=== PATIENT | male | born 1950 | race Caucasian/White ===

== ENCOUNTER 2019-03-12 07:36 | Emergency (ER) | payer OTHER, SELFPAY ==
[2019-03-12 07:40] VITALS: BP 129/82; PULSE 71; RESP 18; TEMP 36.4; O2SAT 97; BMI 34.4
--- NOTE | 2019-03-12 07:55 | DI.CT.S_ITS ---
PROCEDURE: CT HEAD/BRAIN WO CON INDICATIONS: vision change TECHNIQUE: Noncontrast 4.5 mm thick angled axial sections acquired from the foramen magnum to the vertex, with coronal and sagittal reformats. For radiation dose reduction, the following was used: automated exposure control, adjustment of mA and/or kV according to patient size. COMPARISON: None. FINDINGS: Image quality: Diagnostic. CSF spaces: Basal cisterns are patent. No extra-axial fluid collections. Ventricles are normal in size and shape. Brain: No midline shift. No intracranial masses or hemorrhage. Sood-white matter interface is normal. Skull and face: Calvarium and visualized facial bones are intact, without suspicious lesions. Sinuses: Visualized sinuses and mastoids are clear. IMPRESSION: Unremarkable head CT. No acute intracranial hemorrhage. Dictated by: Abdoul Murillo M.D. on 03/12/2019 at 7:47 Approved by: Abdoul Murillo M.D. on 03/12/2019 at 7:48
--- NOTE | 2019-03-12 08:16 | ED_ITS ---
HPI - Eye Problem General Chief complaint: Eye Problems Stated complaint: vision issues Time Seen by Provider: 03/12/19 07:38 Source: patient Mode of arrival: Ambulatory Limitations: no limitations History of Present Illness HPI Narrative: 68M nonsmoker with benign medical history presents alone with the chief complaint of some visual disturbances in his right eye which began yesterday. He admits to a long history of a floater in this eye but he developed a new one yesterday which is a bit darker. He denies eye pain. The floater moves when he moves his eye, but a bit more slowly, with a delay. He denies blurred vision or visual field cuts. He denies use of blood thinners. He denies any recent head injuries or other complaints such as trouble with speech, numbness, tingling or weakness. He has uncorrected vision and states that because of this he tends to be very sensitive to any changes in his vision. He does have a subtle R sided temporal headache which started after the vision disturbance. MD chief complaint: vision change Onset (ago): hour(s) Onset description: unknown Duration: constant Location: right eye Eye Symptoms: other Severity: mild Associated symptoms: headache Treatments Prior to Arrival: none Related Data Patient tetanus UTD: Yes Allergies Allergy/AdvReac Type Severity Reaction Status Date / Time No Known Drug Allergies Allergy Verified 03/12/19 08:00 Review of Systems Constitutional Constitutional: Denies chills, Denies fatigue, Denies fever(s), Denies frequent falls, Reports headache(s), Denies lethargy and Denies weakness Eyes Eyes: Denies change in vision, Denies eye discharge, Reports floaters, Denies irritation and Denies loss of vision ENT Ears, Nose, Mouth, and Throat: Denies change in voice, Denies dizziness, Reports headache(s), Denies neck pain, Denies sore throat and Denies throat swelling Cardiovascular Cardiovascular: Denies chest pain, Denies irregular heart rhythm, Denies lightheadedness, Denies palpitations, Denies dyspnea, Denies dyspnea on exertion and Denies orthopnea Respiratory Respiratory: Denies cough, Denies dyspnea, Denies dyspnea on exertion and Denies wheezing Gastrointestinal Gastrointestinal: Denies abdominal pain, Denies change in bowel habits, Denies diarrhea, Denies nausea and Denies vomiting Genitourinary Genitourinary: Denies hematuria, Denies flank pain, Denies urinary incontinence and Denies urinary urgency Musculoskeletal Musculoskeletal: Denies back pain, Denies muscle weakness, Denies neck pain, Denies numbness and Denies tingling Integumentary/Breasts Skin/Breast: Denies pruritus, Denies erythema, Denies rash and Denies wounds Neurologic Neurologic: Denies behavioral changes, Denies confusion, Denies dizziness, Denies frequent falls, Reports headache(s), Denies loss of vision, Denies numbness, Denies tingling and Denies weakness Psychiatric Psychiatric: Denies anxiety, Denies behavioral changes, Denies confusion, Denies depression, Denies homicidal ideation and Denies suicidal ideation Endocrine Endocrine: Denies fatigue, Denies flushing and Denies palpitations Hematologic/Lymphatic Hematologic/Lymphatic: Denies easy bruising Allergic/Immunologic Allergic/Immunologic: Denies urticaria, Denies throat swelling and Denies wheezing Patient History Medical History Colon polyps (Resolved 2016) Depression (Chronic Unknown) Surgical History Hx of appendectomy (Resolved ~1962) Family History Father No problems noted. Mother No problems noted. Grandfather No problems noted. Grandfather No problems noted. Social History Smoking Status: Never smoker second hand exposure: No alcohol intake: current (Beer, wine or whiskey daily) substance use type: does not use Exam Narrative Exam Narrative: GENERAL: [68] year old patient appears stated age. Well-nourishe d, well-developed patient, in mild distress. HEAD: Atraumatic. Normocephalic. EYES: Pupils equal round and reactive. Extraocular motions intact. No scleral icterus. No injection or drainage. ENT: Nose without bleeding, purulent drainage. Throat without erythema, tonsillar hypertrophy or exudate. Airway patent. NECK: Trachea midline. Non tender CARDIOVASCULAR: Regular rate and rhythm without murmurs, gallops, or rubs. RESPIRATORY: Clear to auscultation. Breath sounds equal bilaterally. No wheezes, rales, or rhonchi. GASTROINTESTINAL: Abdomen soft, non-tender, nondistended. EXTREMITIES: No edema or joint tenderness. BACK: Nontender without deformity or crepitance. No flank tenderness. NEURO: AOx3. SKIN: No rash or erythema of visible areas NIH Stroke Scale 1a. LOC: Patient is alert and keenly responsive (0) 1b. LOC Questions: Patient answers both LOC questions accurately (0) 1c. LOC Commands: Patient performs both tasks correctly (0) 2. Best Gaze: Normal (0) 3. Visual: No visual loss (0) 4. Facial palsy: Normal symmetrical movements (0) 5. Motor arm: No drift (0) 6. Motor leg: No drift (0) 7. Limb ataxia: Absent (0) 8. Sensory: Normal (0) 9. Best language: No aphasia; normal (0) 10. Dysarthria: Normal (0) 11. Extinction and inattention: No abnormality (0) NIHSS: 0 Initial Vital Signs Initial Vital Signs: Vital Signs Temperature 97.6 F 03/12/19 07:40 Pulse Rate 71 03/12/19 07:40 Respiratory Rate 18 03/12/19 07:40 Blood Pressure 129/82 03/12/19 07:40 Pulse Oximetry 97 03/12/19 07:40 Course Orders Ordered: Discontinued Medications Proparacaine HCl (Parcaine 0.5% Ophth Natalie) 1 drops EYE-RIGHT NOW ONE Stop: 03/12/19 08:57 Last Admin: 03/12/19 09:00 Dose: 1 drop Documented by: JIMMY Vital Signs Vital signs: Vital Signs - 8 hr 03/12/19 07:40 Temperature 97.6 F Pulse Rate 71 Respiratory Rate 18 Blood Pressure 129/82 Pulse Oximetry 97 MDM - Eye Problem Lab Data Result diagrams: 03/12/19 08:13 03/12/19 08:13 Labs: Lab Results 03/12/19 03/12/19 Range/Units 08:13 08:13 WBC 4.9 (4.5-11.0) X10^3/uL RBC 4.66 (4.5-5.9) X10^6/uL Hgb 15.1 (13.5-17.5) g/dL Hct 43.3 (41-53) % MCV 93.0 (80-100) fL MCH 32.3 (26-34) PG MCHC 34.8 (30-36) % RDW 13.4 (11.6-14.8) % Plt Count 178 (150-400) X10^3/uL Neut % (Auto) 58.6 (50-75) % Lymph % (Auto) 31.4 (25-40) % [place] % (Auto) 6.4 (3-14) % Eos % (Auto) 2.8 (2-4) % Baso % (Auto) 0.8 (0-2) % Neut # (Auto) 2900 (3739-4857) /uL Lymph # (Auto) 1500 (0238-5114) /uL [place] # (Auto) 300 (0-900) /uL Eos # (Auto) 100 (0-450) /uL Baso # (Auto) 0 (0-100) /uL ESR 4 (0-15) MM/HR Sodium 142 (137-145) mmol/L Potassium 4.1 (3.4-5.1) mmol/L Chloride 108 H (98-107) mmol/L Carbon Dioxide 26 (22-32) mmol/L BUN 14 (9-20) mg/dL Creatinine 1.00 (0.66-1.25) mg/dL Estimated GFR > 60.0 (>60) mL/min BUN/Creatinine Ratio 14.0 (6-22) Glucose 107 (80-110) mg/dL Calcium 8.9 (8.4-10.2) mg/dL C-Reactive Protein 0.5 (<1.0) mg/dL Discharge Plan Departure Patient Disposition: Home Clinical Impression: Floaters in visual field Qualifiers: Laterality: right Qualified Code(s): H43.391 - Other vitreous opacities, right eye Discharge Date/Time: 03/12/19 09:27 Instructions: DI for Eye Floaters Activity Restrictions/Additional Instructions: *You have been diagnosed with [right eye floaters] *What to do: * continue to take medications as directed *Follow up with [facility]. They will see you tomorrow morning and they ask that you arrive at 0830 am at their office here at the hospital. Please tell them you were seen in the Emergency Department and we wanted you seen in close follow up. *Return to ER if you should have any new, worsening or concerning symptoms, such as [worsening visual problems, other stroke-like symptoms such as trouble with speech, balance or weakness in your extremities] Referrals: Barbara Kennedy MD [Physician] - Radha Hutton PA-C [Primary Care Provider] -
[2019-03-12 08:22] LABS: Add Manual Diff / Slide Review NO; Basophils Absolute Auto 0 /uL (0-100); Basophils Percent Auto 0.8 % (0-2); Eosinophils Absolute Auto 100 /uL (0-450); Eosinophils Percent Auto 2.8 % (2-4); Hematocrit 43.3 % (41-53); Hemoglobin 15.1 g/dL (13.5-17.5); Lymphocytes Absolute Auto 1500 /uL (1100-4500); Lymphocytes Percent Auto 31.4 % (25-40); Mean Corpuscular HGB Conc 34.8 % (30-36); Mean Corpuscular Hemoglobin 32.3 PG (26-34); Monocytes Absolute Auto 300 /uL (0-900); Monocytes Percent Auto 6.4 % (3-14); Neutrophils Absolute Auto 2900 /uL (1500-7000); Neutrophils Percent Auto 58.6 % (50-75); Platelet Count 178 X10^3/uL (150-400); Red Blood Cell Count 4.66 X10^6/uL (4.5-5.9); Red Cell Distribution Width 13.4 % (11.6-14.8); White Blood Cell Count 4.9 X10^3/uL (4.5-11.0)
[2019-03-12 08:36] LABS: Blood Urea Nitrogen 14 mg/dL (9-20); C-Reactive Protein Quant 0.5 mg/dL (<1.0); Calcium 8.9 mg/dL (8.4-10.2); Carbon Dioxide 26 mmol/L (22-32); Chloride 108 mmol/L (98-107); Estimated Glomerular Filt Rate > 60.0 mL/min (>60); Glucose 107 mg/dL (80-110); HEMOLYSIS < 15 (0-50); Potassium 4.1 mmol/L (3.4-5.1); Sodium 142 mmol/L (137-145)
[2019-03-12 08:45] LABS: Erythrocyte Sedimentation Rate 4 MM/HR (0-15)
[2019-03-12] MEDS: PROPARACAINE 0.5% OPHTH SOL 1 DROPS EYE-RIGHT (09:00)
[2019-03-12 09:28] VITALS: BP 118/76; PULSE 61; RESP 15; O2SAT 100
== END 2019-03-12 09:27 | disposition home or self-care (01) ==
PROVIDERS: Emergency Provider Emergency Medicine; PCP Physician Assistant
DX: H43.391 Other vitreous opacities, right eye (principal); R51 Headache
CPT/HCPCS: 36415; 70450; 80048; 85025; 85651; 86140; 99283; 99284

== ENCOUNTER → 2019-06-29 09:07 | Outpatient (CLI) | payer OTHER, SELFPAY ==
--- NOTE | 2019-06-29 09:11 | DI.CT.S_ITS ---
PROCEDURE: CT ANGIO CHEST INDICATIONS: Incidental finding thoracic aortic aneurysm TECHNIQUE: After the administration of intravenous contrast, 2 mm thick sections acquired from the pulmonary apices to the posterior costophrenic angles. 3-dimensional maximum intensity projection (MIP) coronal and sagittal reformats were then acquired through the thorax. For radiation dose reduction, the following was used: automated exposure control, adjustment of mA and/or kV according to patient size. COMPARISON: None. FINDINGS: Image quality: Excellent. Pulmonary arteries: Pulmonary arteries are normal in size, and demonstrate no intraluminal filling defects to suggest central pulmonary embolism. Lungs and pleura: Lungs are clear. No pleural effusions or pneumothorax. Central and peripheral airways are patent. Mediastinum: Heart size is normal, without pericardial effusion. No mediastinal or hilar adenopathy. Thoracic aorta is normal in caliber and enhancement. Esophagus is normal in caliber, without hiatal hernia. Bones and chest wall: No suspicious bony lesions. Ribs and thoracic spine appear intact throughout. Thyroid gland appears normal where well seen. No axillary or supraclavicular adenopathy. Abdomen: Visualized upper abdominal solid organs appear normal in the early arterial phase of enhancement. IMPRESSION: Normal examination, no evidence of pulmonary embolus. No aortic dissection found. Maximal axial dimension of the ascending aorta is 3.8 cm, normal. Dictated by: Rafa Norman M.D. on 06/29/2019 at 11:32 Approved by: Rafa Norman M.D. on 06/29/2019 at 11:33
[2019-06-29 09:37] LABS: BUN Creatinine Ratio 17.3 (6-22); Blood Urea Nitrogen 19 mg/dL (9-20); Estimated Glomerular Filt Rate > 60.0 mL/min (>60)
[2019-06-29 09:54] LABS: Creatinine Urine Random 38.9 mg/dL
[2019-06-29 10:03] LABS: Microalbumi Creatinin Ratio Ur 15.4 ug/mg CR (<30); Microalbumin Urine Random < 0.6 mg/dL (0-1.6)
== END ==
PROVIDERS: PCP Family Medicine; Referring Provider Family Medicine; Visit Provider Family Medicine
DX: I71.2 Thoracic aortic aneurysm, without rupture (principal)
CPT/HCPCS: 36415; 71275; 82043; 82565; 82570; 84520; Q9967

== ENCOUNTER → 2020-02-07 13:45 | Outpatient (CLI) | payer OTHER, SELFPAY ==
[2020-02-07 15:23] LABS: Prostate Specific Antigen Scrn 5.27 ng/mL (0.1-4.0)
== END ==
PROVIDERS: PCP Family Medicine; Referring Provider Family Medicine; Visit Provider Family Medicine
DX: R97.20 Elevated prostate specific antigen [PSA] (principal); Z12.11 Encounter for screening for malignant neoplasm of colon
CPT/HCPCS: 36415; G0103

== ENCOUNTER → 2020-07-09 09:09 | Outpatient (CLI) | payer OTHER, SELFPAY ==
--- NOTE | 2020-07-09 09:11 | DI.MRI.S_ITS ---
PROCEDURE: MR PELIS WO/W CON INDICATIONS: elevated PSA TECHNIQUE: Coronal HASTE, axial T1 FSE with fat saturation, 3-plane nonbreath-hold T2 FSE. After the administration of contrast, dynamic axial, delayed axial and coronal VIBE or 2-D FLASH with fat saturation through the pelvis. Optional diffusion weighted imaging and ADC may be performed. COMPARISON: [facility], CT, CT ANGIO CHEST, 06/29/2019, 9:46. FINDINGS: Image quality: Diffusion weighted and dynamic contrast enhanced images are diagnostic. Prostate: Measures 7 x 5.7 x 4.5 cm; ellipsoid gland volume is 93 mL. Multiple BPH nodules. Median lobe hypertrophy. No significant intrinsic T1 hyperintensity. Lesion size(s): Lesion 1: 1 cm, (08/05) Lesion 2: 0.8 cm, (08/04) Lesion location(s) (sector): Lesion 1: Right mid gland transitional zone Lesion 2: Left mid gland transitional zone Lesion description: Lesion 1: Oval Lesion 2: Oval T2 weighted imaging (T2WI) morphology score: Lesion 1: 4 Lesion 2: 3 Diffusion weighted imaging (DWI) morphology score: Lesion 1: 2 Lesion 2: 2 Dynamic contrast enhancement (DCE): Lesion 1: Absent Lesion 2: Absent Lesion PI-RADS score: Lesion 1: PI-RADS 3 Lesion 2: PI-RADS 3 Genitourinary system: Bladder wall thickness is normal. Distal ureters are non distended. Bowel and peritoneum: No pathologic free pelvic fluid. Diverticulosis. Nodes and vessels: A few small pelvic lymph nodes. For example. For example: -right mesorectal 0.5 cm, (33/88) -left mesorectal 0.6 cm, (33/76). -left superior rectal 0.5 cm, (33/59). Iliac vessels are normal in caliber. Soft tissues: Fat containing left inguinal hernia. Bones: Marrow demonstrates normal overall signal, without lesions to suggest metastases. IMPRESSION: 1. No PI-RADS 4 or 5 observations for targeted biopsy. PI-RADS 3 observations described above. 2. A few small nonspecific pelvic lymph nodes measuring 6 mm or less. These are not enlarged but are more prominent than typically seen. 3. Marked prostatomegaly with multiple BPH nodules. 4. Diverticulosis. Dictated by: Pradeep Arita M.D. on 07/09/2020 at 17:27 Approved by: Pradeep Arita M.D. on 07/09/2020 at 17:44
== END ==
PROVIDERS: PCP Family Medicine; Referring Provider Specialist; Visit Provider Specialist
DX: R97.20 Elevated prostate specific antigen [PSA] (principal); N40.2 Nodular prostate without lower urinary tract symptoms; K57.90 Diverticulosis of intestine, part unspecified, without perforation or abscess without bleeding
CPT/HCPCS: 72197; A9579

== ENCOUNTER → 2022-05-12 08:58 | Outpatient (CLI) | payer MEDICARE, OTHER, SELFPAY ==
[2022-05-12 09:57] LABS: Add Manual Diff / Slide Review NO; Basophils Absolute Auto 0 /uL (0-100); Basophils Percent Auto 0.7 % (0-2); Eosinophils Absolute Auto 100 /uL (0-450); Eosinophils Percent Auto 2.9 % (2-4); Hematocrit 45.2 % (41-53); Lymphocytes Absolute Auto 1900 /uL (1100-4500); Lymphocytes Percent Auto 35.8 % (25-40); Mean Corpuscular HGB Conc 33.2 % (30-36); Mean Corpuscular Hemoglobin 30.9 PG (26-34); Mean Corpuscular Volume 93.1 fL (80-100); Monocytes Absolute Auto 400 /uL (0-900); Monocytes Percent Auto 7.8 % (3-14); Neutrophils Absolute Auto 2700 /uL (1500-7000); Neutrophils Percent Auto 52.8 % (50-75); Platelet Count 188 X10^3/uL (150-400); Red Blood Cell Count 4.86 X10^6/uL (4.5-5.9); White Blood Cell Count 5.2 X10^3/uL (4.5-11.0)
[2022-05-12 10:16] LABS: Hemoglobin A1C% w Est Avg Glu 5.4 % (4.0-6.0)
[2022-05-12 10:21] LABS: Alanine Aminotransferase 25 IU/L (<50); Alkaline Phosphatase 61 U/L (38-126); Aspartate Aminotransferase 25 IU/L (17-59); BUN Creatinine Ratio 12.3 (6-22); Bilirubin Total 0.7 mg/dL (0.2-1.3); Blood Urea Nitrogen 13 mg/dL (9-20); Calcium 8.8 mg/dL (8.4-10.2); Carbon Dioxide 23 mmol/L (22-32); Chloride 105 mmol/L (98-107); Cholesterol 182 mg/dL (140-199); Estimated Glomerular Filt Rate > 60 mL/min (>60); Glucose 98 mg/dL (80-110); HDL Cholesterol 58 mg/dL (40-60); HEMOLYSIS < 15 (0-50); LDL Cholesterol Calculated 100 mg/dL (<100); Potassium 3.9 mmol/L (3.4-5.1); Sodium 139 mmol/L (137-145); Triglycerides 118 mg/dL (35-150)
[2022-05-15 16:00] LABS: Albumin 4.2 g/dL (3.5-5.0); Albumin Globulin Ratio 1.5 (1.0-2.8); Globulin 2.8 g/dL (1.7-4.1)
== END ==
PROVIDERS: PCP Family Medicine; Referring Provider Family Medicine; Visit Provider Family Medicine
DX: G62.9 Polyneuropathy, unspecified (principal)
CPT/HCPCS: 36415; 80053; 80061; 83036; 85025

== ENCOUNTER 2024-09-25 07:30 | Outpatient (RCR) | payer MEDICARE, OTHER, SELFPAY ==
--- NOTE | 2024-08-24 13:56 | PT.OIE ---
Current Diagnoses Pain in left hip (08/24/24) Low back pain, unspecified (08/24/24) Unspecified abnormalities of gait and mobility (08/24/24) Past Medical History (Last Updated 05/12/22 @ 08:49 by Latoya Gonzalez DO) Anxiety BPH NOS w/o ur obs/LUTS Colon polyps (2017) Depression (Unknown) Peripheral neuropathy Thoracic aortic aneurysm UTI (urinary tract infection) Past Surgical History (Last Reviewed 06/17/20 @ 09:24 by Alaina Torre MD) H/O prostate biopsy H/O vasectomy Hx of appendectomy (~1963) Visit Care Team Role Provider Type Latoya Gonzalez DO Attending Provider Physician Family Provider Primary Care Provider Referring Provider Specialty: Family Practice Address: [address] [place] [address], [address], [facility] Email: [email or web address] Physical Therapy Initial Evaluation PT-OP-A Visit Information Start: 08/24/24 07:22 Freq: Status: Active Protocol: Document 08/24/24 07:34 LRN (Rec: 08/24/24 08:22 LRN Laptop) Out-Patient Physical Therapy Visit Information Visit Information Visit Type Initial Evaluation Visit Start Time 07:30 Visit Stop Time 08:20 Visit Number 1 Evaluation Information Evaluation Date 08/24/24 Precautions Precautions Kane feet neuropathy for 7 yrs. PT-OP-B Current Condition Start: 08/24/24 07:22 Freq: Status: Active Protocol: Document 08/24/24 07:34 LRN (Rec: 08/24/24 08:22 LRN Laptop) Current Condition History of Current Condition Onset Date 2 yrs ago Current Complaints 2 months ago. 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 Two yrs ago had insidious onset of L hip pain that he associates with climbing. Hiking with son (OT) who noticed he was not hiking well up a hill, laboring on the L leg and his son recommended he seek PT evaluation. States he also has C3 R UE pain that he has had some resolution with help of extras casting director. LBP is constant at 1-2/10, the L hip/ buttock pain is acute/ situational (pain 6-7/10), causing him to take a quick break to relieve the pain. Prior Treatments and Tests No imaging. 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 Treatment Goals Patient/Caregiver Goals Pt goals: - Daily ex routine to isolate the Gluteus Medius and strengthen and a tight inner thigh ms stretch. - Improve ability to hike with better mechanics. - Improve ability to climb stairs, ramp, and hike without triggering onset of L buttock . Personal Factors Other Personal Factors That May Effect Neuropathy of feet for 7 yrs. Therapy/Recovery PT-OP-C Subjective Start: 08/24/24 07:22 Freq: Status: Active Protocol: Document 08/24/24 07:34 LRN (Rec: 08/24/24 08:22 LRN Laptop) Patient Questionnaires ABC- Activity Specific Balance Confidence Scale ABC Score 95 ABC Functional Impairment 1 to <20% Impaired (Score 81- 99) Lower Extremity Functional Scale LEFS Score 55 LEFS Impairment 1 to 19% Impaired (Score 63-79 ) Oswestry Low Back Index Oswestry Score 6/50 (12/100) Oswestry Impairment 1 to 19% Impaired (Score 1-19) OP-PT Pain Assessment Pain Assessment Grid Paper Pain Assessment Grid Completed Yes Location L LB Pain Location Details L Low Back Intensity 2 Scale Used Numeric (0 - 10) Description Tightness Frequency Constant L buttock Pain Location Details L Buttock in area of sacral border. Intensity 7 Scale Used Numeric (0 - 10) Description Acute,Cramping,Sharp Frequency Situational/hiking Other Pain Aggravating Factors Hiking, walking, ramp, stairs PT-OP-G Mobility & Gait Start: 08/24/24 07:22 Freq: Status: Active Protocol: Document 08/24/24 07:34 LRN (Rec: 08/24/24 08:22 LRN Laptop) OP Gait Assessment Gait Gait Assistance Required: Independent Assistive Devices Assistive Device None Stair Climbing Evaluation Evaluation Level of Assist On Stairs Independent Devices Stair Climbing Assistive Devices None PT-OP-J Posture/Palpation/Skin Start: 08/24/24 07:22 Freq: Status: Active Protocol: Document 08/24/24 07:34 LRN (Rec: 08/24/24 08:22 LRN Laptop) Posture Evaluation Position Standing Head/C-Spine Posture Forward Head T-Spine Posture Flattened L-Spine Posture Shifted Left Shoulder Posture (R) Elevated Weight Distribution Weight Shifted Right Hip Posture (R) Externally Rotated Foot Arch (R) Medium Arch,(L) Low Arch Comments Posture Comments mild dowagers hump Palpation Assessment Location L LB Palpation Location superior iliac crest sup Palpation Findings Tenderness L hip Palpation Location L Buttock Lat border of sacrum (standing) Palpation Findings Tenderness PT-OP-K Range of Motion Start: 08/24/24 07:22 Freq: Status: Active Protocol: Document 08/24/24 07:34 LRN (Rec: 08/24/24 08:22 LRN Laptop) Lumbar Spine Range of Motion Lumbar Spine Active Degrees Testing Position Standing Flexion 100 Extension 10 Rotation Left 40 Rotation Right 43 Lateral Flexion Left 10 Lateral Flexion Right 10 Hip Goniometric Range of Motion Hip Right Passive Testing Position Supine Internal Rotation 15 External Rotation 65 Comments L hip IR created twinge of pain in the L Left Passive Testing Position Supine Internal Rotation 5 External Rotation 60 PT-OP-L Special Tests Start: 08/24/24 07:22 Freq: Status: Active Protocol: Document 08/24/24 07:34 LRN (Rec: 08/24/24 08:22 LRN Laptop) Special Tests Neural Special Tests- Lower Body Sciatic Nerve Tension Test Results + left Comments + Slump PT-OP-M Strength Start: 08/24/24 07:22 Freq: Status: Active Protocol: Document 08/24/24 07:34 LRN (Rec: 08/24/24 08:22 LRN Laptop) Hip Strength Hip Manual Muscle Testing Right Comments Strength is 5/5 except as indicated above. Left Flexion (L2) 3+ Fair+ Adduction 4+ Good+ Comments Strength is 5/5 except as indicated above. PT-OP-Q Treatments Start: 08/24/24 07:22 Freq: Status: Active Protocol: Document 08/24/24 07:34 LRN (Rec: 08/24/24 08:22 LRN Laptop) Self-Care/Home Management Treatment Education Other Education Discussed results of evaluation, goals, treatment, and plan of care (POC); pt agreeable to evaluation, goals , treatment, and POC. PT-OP-T Assessment and Plan Start: 08/24/24 07:22 Freq: Status: Active Protocol: Document 08/24/24 07:34 LRN (Rec: 08/24/24 08:22 LRN Laptop) Physical Therapy Assessment Rehab Potential Rehabilitation Potential Good Evaluation Complexity Number of Personal Factors/Comorbidities 1-2 Number of Body Systems Impaired 4 or More Clinical Presentation at Evaluation Evolving Impairments Impairments Gait,Pain,ROM,Soft Tissue Mobility,Strength Goals Two Impairment Pain in L buttock with hiking, stair amb, walking ramps. Half-Way Goal (LTG) Improve ability to hike, climb stairs, and walk ramps with better mechanics. and without triggering onset of L buttock. LTG Duration 11/16/24 One Impairment Lacks appropriate self care HEP. Short Term Goal (STG) Pt will be able to demonstrated good sitting/ standing posture of equal WBing through hips or LE's. STG Duration 10/05/24 Enamel Sprayer Goal (LTG) Pt will be independent and consistent with a daily ex routine to isolate the hip muscles with stretches (inner thigh) and strengthening ( requested Gluteus Medius) to improve hip mobility and LE function per LEFS score ( current 55/80). LTG Duration 11/16/24 Assessment Summary Assessment Pt is a 74 yo male with a L rotated sacrum, weak and tight L hip muscles, tight L lumbar /thoracic paraspinals, with pain in L SIJ with walking ramps, stairs & hiking. The pt will benefit from skilled physical therapy of manual therapy, therapeutic exer, education and training in self care management for pain, posturing, gait training and activity management/HEP. Physical Therapy Plan Frequency and Duration Frequency of Treatment 2x/Week Duration of treatment (weeks) 12 Plan of Care Start Date 08/24/24 Plan of Care End Date 11/16/24 Therapeutic Interventions Therapeutic Interventions Gait Training,Home Exercise Program,Joint Mobilizations, Manual Therapy,Neuromuscular Re-education,Self-Care/Home Management,Soft Tissue Mobilization,Therapeutic Activities,Therapeutic Exercises Modalities Cold Pack/Ice Massage,Electric Stimulation,Hot Packs Next Visit Focus/Plan Next Note Type Treatment Note Next Visit Plan Next: Check gait on stairs, ramp, and walking for pain SIJ dysfunction. Manual therapy (JMT, MET, Sacral balancing) to correct L rotated sacrum. Address POC: Address: Weak and tight L hip muscles, tight L lumbar /thoracic paraspinals, with pain in L SIJ with walking ramps, stairs & hiking. Therapeutic Ex (strengthening/ ROM), Therapeutic Activity ( transfer training), manual therapy (STM/JMT), Gait & Balance training, Pt Education (HEP, Edema and pain mgmt).
--- NOTE | 2024-08-24 13:56 | PT.OPPOC ---
Physical, Occupational & Speech Therapy At [facility] Current Diagnoses Pain in left hip (08/24/24) Low back pain, unspecified (08/24/24) Unspecified abnormalities of gait and mobility (08/24/24) Visit Care Team Role Provider Type Latoya Gonzalez DO Attending Provider Physician Family Provider Primary Care Provider Referring Provider Specialty: Family Practice Address: [address] [place] [address], [address], [facility] Email: [email or web address] Plan Of Care PT-OP-B Current Condition Start: 08/24/24 07:22 Freq: Status: Active Protocol: Document 08/24/24 07:34 LRN (Rec: 08/24/24 08:22 LRN Laptop) Current Condition History of Current Condition Onset Date 2 yrs ago Current Complaints 2 months ago. 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 Two yrs ago had insidious onset of L hip pain that he associates with climbing. Hiking with son (OT) who noticed he was not hiking well up a hill, laboring on the L leg and his son recommended he seek PT evaluation. States he also has C3 R UE pain that he has had some resolution with help of cadastral surveyor. LBP is constant at 1-2/10, the L hip/ buttock pain is acute/ situational (pain 6-7/10), causing him to take a quick break to relieve the pain. Prior Treatments and Tests No imaging. 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 Treatment Goals Patient/Caregiver Goals Pt goals: - Daily ex routine to isolate the Gluteus Medius and strengthen and a tight inner thigh ms stretch. - Improve ability to hike with better mechanics. - Improve ability to climb stairs, ramp, and hike without triggering onset of L buttock . Personal Factors Other Personal Factors That May Effect Neuropathy of feet for 7 yrs. Therapy/Recovery PT-OP-T Assessment and Plan Start: 08/24/24 07:22 Freq: Status: Active Protocol: Document 08/24/24 07:34 LRN (Rec: 08/24/24 08:22 LRN Laptop) Physical Therapy Assessment Rehab Potential Rehabilitation Potential Good Evaluation Complexity Number of Personal Factors/Comorbidities 1-2 Number of Body Systems Impaired 4 or More Clinical Presentation at Evaluation Evolving Impairments Impairments Gait,Pain,ROM,Soft Tissue Mobility,Strength Goals Two Impairment Pain in L buttock with hiking, stair amb, walking ramps. Delinquency Counselor Goal (LTG) Improve ability to hike, climb stairs, and walk ramps with better mechanics. and without triggering onset of L buttock. LTG Duration 11/16/24 One Impairment Lacks appropriate self care HEP. Short Term Goal (STG) Pt will be able to demonstrated good sitting/ standing posture of equal WBing through hips or LE's. STG Duration 10/05/24 Delinquency Counselor Goal (LTG) Pt will be independent and consistent with a daily ex routine to isolate the hip muscles with stretches (inner thigh) and strengthening ( requested Gluteus Medius) to improve hip mobility and LE function per LEFS score ( current 55/80). LTG Duration 11/16/24 Assessment Summary Assessment Pt is a 74 yo male with a L rotated sacrum, weak and tight L hip muscles, tight L lumbar /thoracic paraspinals, with pain in L SIJ with walking ramps, stairs & hiking. The pt will benefit from skilled physical therapy of manual therapy, therapeutic exer, education and training in self care management for pain, posturing, gait training and activity management/HEP. Physical Therapy Plan Frequency and Duration Frequency of Treatment 2x/Week Duration of treatment (weeks) 12 Plan of Care Start Date 08/24/24 Plan of Care End Date 11/16/24 Therapeutic Interventions Therapeutic Interventions Gait Training,Home Exercise Program,Joint Mobilizations, Manual Therapy,Neuromuscular Re-education,Self-Care/Home Management,Soft Tissue Mobilization,Therapeutic Activities,Therapeutic Exercises Modalities Cold Pack/Ice Massage,Electric Stimulation,Hot Packs Next Visit Focus/Plan Next Note Type Treatment Note Next Visit Plan Next: Check gait on stairs, ramp, and walking for pain SIJ dysfunction. Manual therapy (JMT, MET, Sacral balancing) to correct L rotated sacrum. Address POC: Address: Weak and tight L hip muscles, tight L lumbar /thoracic paraspinals, with pain in L SIJ with walking ramps, stairs & hiking. Therapeutic Ex (strengthening/ ROM), Therapeutic Activity ( transfer training), manual therapy (STM/JMT), Gait & Balance training, Pt Education (HEP, Edema and pain mgmt). Plan of Care Dates Plan of Care Start Date 08/24/24 Plan of Care End Date 11/16/24 Electronically Signed by: Linda Gamez, PT 08/24/24 1882 If you are in agreement with this Plan of Care, please return a signed and dated copy. I have reviewed this Plan of Care and certify that the skilled therapy services above are required to meet the patient?s needs. Physician Signature Date Printed Name and Credentials Clinical Instructor Signature Printed Name and Credentials
--- NOTE | 2024-08-29 14:18 | PT.OTN ---
Current Diagnoses Pain in left hip (08/29/24) Low back pain, unspecified (08/29/24) Unspecified abnormalities of gait and mobility (08/29/24) Physical Therapy Treatment Note PT-OP-A Visit Information Start: 08/24/24 07:22 Freq: Status: Active Protocol: Document 08/29/24 07:23 LRN (Rec: 08/29/24 09:15 LRN Laptop) Out-Patient Physical Therapy Visit Information Visit Information Visit Type Treatment Note Visit Start Time 08:20 Visit Stop Time 09:09 Visit Number 2 Evaluation Information Evaluation Date 08/24/24 Precautions Precautions Yomi feet neuropathy for 7 yrs. PT-OP-B Current Condition Start: 08/24/24 07:22 Freq: Status: Active Protocol: Document 08/24/24 07:34 LRN (Rec: 08/24/24 08:22 LRN Laptop) Current Condition History of Current Condition Onset Date 2 yrs ago Current Complaints 2 months ago. History of Current Condition Insidious onset over 6 yrs of neuropathy of yomi big toes and sometimes in all toes with infrequent radiation up to legs. Two yrs ago had insidious onset of L hip pain that he associates with climbing. Hiking with son (OT) who noticed he was not hiking well up a hill, laboring on the L leg and his son recommended he seek PT evaluation. States he also has C3 R UE pain that he has had some resolution with help of accounting tutor. LBP is constant at 1-2/10, the L hip/ buttock pain is acute/ situational (pain 6-7/10), causing him to take a quick break to relieve the pain. Prior Treatments and Tests No imaging. 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 Treatment Goals Patient/Caregiver Goals Pt goals: - Daily ex routine to isolate the Gluteus Medius and strengthen and a tight inner thigh ms stretch. - Improve ability to hike with better mechanics. - Improve ability to climb stairs, ramp, and hike without triggering onset of L buttock . Personal Factors Other Personal Factors That May Effect Neuropathy of feet for 7 yrs. Therapy/Recovery PT-OP-C Subjective Start: 08/24/24 07:22 Freq: Status: Active Protocol: Document 08/29/24 07:23 LRN (Rec: 08/29/24 09:15 LRN Laptop) OP-PT Subjective Patient Comments Patient Comments States he did bridges this morning so he feels pretty good, reports no pain with 2 flights of 10 steps. Sitting down after stairs got L Buttock pain. L Groin pain after glut bridges and climbing stairs at home. PT-OP-F Manual Assessment Start: 08/24/24 07:22 Freq: Status: Active Protocol: Document 08/29/24 07:23 LRN (Rec: 08/29/24 09:15 LRN Laptop) Manual Assessments Joint Mobility Assessment Joint Mobility Assessment R innominate anterior rot/L posterior rot. (L leg long in sup and long sit.) Inflare on R innominate. + June on R (moves with june ). PT-OP-G Mobility & Gait Start: 08/24/24 07:22 Freq: Status: Active Protocol: Document 08/29/24 07:23 LRN (Rec: 08/29/24 09:15 LRN Laptop) Stair Climbing Evaluation Evaluation Level of Assist On Stairs Independent Devices Stair Climbing Assistive Devices None Technique/Endurance Stair Climbing Direction Ascend and Descend Number of Steps Climbed 10 Stair Climbing Set # Repetitions (reps) 2 Comments Stair Climbing Comments Pt had stable pelvis but excessive trunk rot (no pelvic SB) PT-OP-J Posture/Palpation/Skin Start: 08/24/24 07:22 Freq: Status: Active Protocol: Document 08/24/24 07:34 LRN (Rec: 08/24/24 08:22 LRN Laptop) Posture Evaluation Position Standing Head/C-Spine Posture Forward Head T-Spine Posture Flattened L-Spine Posture Shifted Left Shoulder Posture (R) Elevated Weight Distribution Weight Shifted Right Hip Posture (R) Externally Rotated Foot Arch (R) Medium Arch,(L) Low Arch Comments Posture Comments mild dowagers hump Palpation Assessment Location L LB Palpation Location superior iliac crest sup Palpation Findings Tenderness L hip Palpation Location L Buttock Lat border of sacrum (standing) Palpation Findings Tenderness PT-OP-K Range of Motion Start: 08/24/24 07:22 Freq: Status: Active Protocol: Document 08/24/24 07:34 LRN (Rec: 08/24/24 08:22 LRN Laptop) Lumbar Spine Range of Motion Lumbar Spine Active Degrees Testing Position Standing Flexion 100 Extension 10 Rotation Left 40 Rotation Right 43 Lateral Flexion Left 10 Lateral Flexion Right 10 Hip Goniometric Range of Motion Hip Right Passive Testing Position Supine Internal Rotation 15 External Rotation 65 Comments L hip IR created twinge of pain in the L Left Passive Testing Position Supine Internal Rotation 5 External Rotation 60 PT-OP-L Special Tests Start: 08/24/24 07:22 Freq: Status: Active Protocol: Document 08/24/24 07:34 LRN (Rec: 08/24/24 08:22 LRN Laptop) Special Tests Neural Special Tests- Lower Body Sciatic Nerve Tension Test Results + left Comments + Slump PT-OP-M Strength Start: 08/24/24 07:22 Freq: Status: Active Protocol: Document 08/24/24 07:34 LRN (Rec: 08/24/24 08:22 LRN Laptop) Hip Strength Hip Manual Muscle Testing Right Comments Strength is 5/5 except as indicated above. Left Flexion (L2) 3+ Fair+ Adduction 4+ Good+ Comments Strength is 5/5 except as indicated above. PT-OP-Q Treatments Start: 08/24/24 07:22 Freq: Status: Active Protocol: Document 08/29/24 07:23 LRN (Rec: 08/29/24 09:15 LRN Laptop) Therapeutic Exercises Supine Exercises Bridge Reps/Minutes 10x Comments Cued neutral spine position, to exhale on lift, inhale on return Fig 4 stretch Side left Reps/Minutes 60 SH x 2 Lateral Hip stretch Side left Reps/Minutes 60 SH x 2 Comments Extra time needed to determine max bryan stretch. Piriformis stretch Supine Exercise Name L Piriformis stretch Side left Reps/Minutes 60 SH x 2 Comments Extra time needed to determine max bryan stretch. Sidelying Exercises TA tightening Side bilateral Reps/Minutes 10 SH x 5 each Other Exercises Stair amb Other Exercise Name Stair ex Equipment Used Railing Reps/Minutes 6' Therapeutic Activity Therapeutic Activity Sit<>sup transfer Reps/Minutes x 4 Comments Much phys and v cuing to keep core tight as transfer and for proper transfer technique. Manual Therapy Treatment Consent Patient gave verbal consent for manual Yes treatment Joint Mobilizations R SIJ Joint R SIJ Direction Correction of R inflare ( anterior rot R innominate) Body Position Supine Reps/Duration 17' Comments Correction of inflare appeared to correct long R leg. Self-Care/Home Management Treatment Activities Self-Care/Home Management Activities Reviewed & issued HEP: Inner core/PF/lumbar multifidus tightening for core stabilization, & Stage I of Get Your Belly Back (TA tightening) PT-OP-T Assessment and Plan Start: 08/24/24 07:22 Freq: Status: Active Protocol: Document 08/29/24 07:23 LRN (Rec: 08/29/24 09:15 LRN Laptop) Physical Therapy Assessment Goals Two Impairment Pain in L buttock with hiking, stair amb, walking ramps. Interventional Tech Goal (LTG) Improve ability to hike, climb stairs, and walk ramps with better mechanics. and without triggering onset of L buttock. LTG Duration 11/16/24 One Impairment Lacks appropriate self care HEP. Short Term Goal (STG) Pt will be able to demonstrated good sitting/ standing posture of equal WBing through hips or LE's. STG Duration 10/05/24 Interventional Tech Goal (LTG) Pt will be independent and consistent with a daily ex routine to isolate the hip muscles with stretches (inner thigh) and strengthening ( requested Gluteus Medius) to improve hip mobility and LE function per LEFS score ( current 55/80). 08/29/24: HEP: Inner core/PF /lumbar multifidus tightening for core stabilization, & Stage I of Get Your Belly Back (TA tightening) LTG Duration 11/16/24 progressed 08/29/24 (need inner thigh stretch & GM strength) Assessment Summary Assessment Pt is very tight in L hip IR> ER, and needed extra cuing to not overstretch. His R innominate was inflared and anterior rot, but corrected both with inflare correction. Core stab and better normalization of hip mobility and strength (and PF strengthening?) is needed to help maintain pelvic stability to reduce his L SIJ pain c/o. Physical Therapy Plan Frequency and Duration Frequency of Treatment 2x/Week Duration of treatment (weeks) 12 Plan of Care Start Date 08/24/24 Plan of Care End Date 11/16/24 Next Visit Focus/Plan Next Note Type Treatment Note Next Visit Plan Next: Educate in proper sitting/standing posture (STG1 )Assess for pain SIJ dysfunction with gait on stairs, ramp, and walking. Manual therapy (Sacral balancing, R SIJ correction if needed) to correct L rotated sacrum. POC: Address: Weak and tight L hip muscles, tight L lumbar /thoracic paraspinals, with pain in L SIJ with walking ramps, stairs & hiking. Therapeutic Ex (strengthening/ ROM), Therapeutic Activity ( transfer training), manual therapy (STM/JMT), Gait & Balance training, Pt Education (HEP, Edema and pain mgmt).
--- NOTE | 2024-09-05 16:45 | PT.OTN ---
Current Diagnoses Pain in left hip (09/05/24) Low back pain, unspecified (09/05/24) Unspecified abnormalities of gait and mobility (09/05/24) Physical Therapy Treatment Note PT-OP-A Visit Information Start: 08/24/24 07:22 Freq: Status: Active Protocol: Document 09/05/24 07:31 LRN (Rec: 09/05/24 08:20 LRN Laptop) Out-Patient Physical Therapy Visit Information Visit Information Visit Type Treatment Note Visit Start Time 07:34 Visit Stop Time 08:17 Visit Number 3 Evaluation Information Evaluation Date 08/24/24 Precautions Precautions Yomi feet neuropathy for 7 yrs. PT-OP-B Current Condition Start: 08/24/24 07:22 Freq: Status: Active Protocol: Document 08/24/24 07:34 LRN (Rec: 08/24/24 08:22 LRN Laptop) Current Condition History of Current Condition Onset Date 2 yrs ago Current Complaints 2 months ago. History of Current Condition Insidious onset over 6 yrs of neuropathy of yomi big toes and sometimes in all toes with infrequent radiation up to legs. Two yrs ago had insidious onset of L hip pain that he associates with climbing. Hiking with son (OT) who noticed he was not hiking well up a hill, laboring on the L leg and his son recommended he seek PT evaluation. States he also has C3 R UE pain that he has had some resolution with help of director of curriculum and instruction. LBP is constant at 1-2/10, the L hip/ buttock pain is acute/ situational (pain 6-7/10), causing him to take a quick break to relieve the pain. Prior Treatments and Tests No imaging. 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 Treatment Goals Patient/Caregiver Goals Pt goals: - Daily ex routine to isolate the Gluteus Medius and strengthen and a tight inner thigh ms stretch. - Improve ability to hike with better mechanics. - Improve ability to climb stairs, ramp, and hike without triggering onset of L buttock . Personal Factors Other Personal Factors That May Effect Neuropathy of feet for 7 yrs. Therapy/Recovery PT-OP-C Subjective Start: 08/24/24 07:22 Freq: Status: Active Protocol: Document 09/05/24 07:31 LRN (Rec: 09/05/24 08:20 LRN Laptop) OP-PT Subjective Patient Comments Patient Comments Not having pain hiking but still has L groin pain. Has been doing SLR with opp leg supported in a hamstring stretch in doorway. PT-OP-F Manual Assessment Start: 08/24/24 07:22 Freq: Status: Active Protocol: Document 08/29/24 07:23 LRN (Rec: 08/29/24 09:15 LRN Laptop) Manual Assessments Joint Mobility Assessment Joint Mobility Assessment R innominate anterior rot/L posterior rot. (L leg long in sup and long sit.) Inflare on R innominate. + March on R (moves with june ). PT-OP-G Mobility & Gait Start: 08/24/24 07:22 Freq: Status: Active Protocol: Document 08/29/24 07:23 LRN (Rec: 08/29/24 09:15 LRN Laptop) Stair Climbing Evaluation Evaluation Level of Assist On Stairs Independent Devices Stair Climbing Assistive Devices None Technique/Endurance Stair Climbing Direction Ascend and Descend Number of Steps Climbed 10 Stair Climbing Set # Repetitions (reps) 2 Comments Stair Climbing Comments Pt had stable pelvis but excessive trunk rot (no pelvic SB) PT-OP-J Posture/Palpation/Skin Start: 08/24/24 07:22 Freq: Status: Active Protocol: Document 08/24/24 07:34 LRN (Rec: 08/24/24 08:22 LRN Laptop) Posture Evaluation Position Standing Head/C-Spine Posture Forward Head T-Spine Posture Flattened L-Spine Posture Shifted Left Shoulder Posture (R) Elevated Weight Distribution Weight Shifted Right Hip Posture (R) Externally Rotated Foot Arch (R) Medium Arch,(L) Low Arch Comments Posture Comments mild dowagers hump Palpation Assessment Location L LB Palpation Location superior iliac crest sup Palpation Findings Tenderness L hip Palpation Location L Buttock Lat border of sacrum (standing) Palpation Findings Tenderness PT-OP-K Range of Motion Start: 08/24/24 07:22 Freq: Status: Active Protocol: Document 08/24/24 07:34 LRN (Rec: 08/24/24 08:22 LRN Laptop) Lumbar Spine Range of Motion Lumbar Spine Active Degrees Testing Position Standing Flexion 100 Extension 10 Rotation Left 40 Rotation Right 43 Lateral Flexion Left 10 Lateral Flexion Right 10 Hip Goniometric Range of Motion Hip Right Passive Testing Position Supine Internal Rotation 15 External Rotation 65 Comments L hip IR created twinge of pain in the L Left Passive Testing Position Supine Internal Rotation 5 External Rotation 60 PT-OP-L Special Tests Start: 08/24/24 07:22 Freq: Status: Active Protocol: Document 08/24/24 07:34 LRN (Rec: 08/24/24 08:22 LRN Laptop) Special Tests Neural Special Tests- Lower Body Sciatic Nerve Tension Test Results + left Comments + Slump PT-OP-M Strength Start: 08/24/24 07:22 Freq: Status: Active Protocol: Document 08/24/24 07:34 LRN (Rec: 08/24/24 08:22 LRN Laptop) Hip Strength Hip Manual Muscle Testing Right Comments Strength is 5/5 except as indicated above. Left Flexion (L2) 3+ Fair+ Adduction 4+ Good+ Comments Strength is 5/5 except as indicated above. PT-OP-Q Treatments Start: 08/24/24 07:22 Freq: Status: Active Protocol: Document 09/05/24 07:31 LRN (Rec: 09/05/24 08:20 LRN Laptop) Cardio Equipment Treadmill Duration (Minutes) 6 Speed 1.5 Incline 0 Other Extra time for awareness trng of keeping TA tight, L hip/leg fwd, heel strk Therapeutic Exercises Supine Exercises SIJ Dys Phase I Supine Exercise Name Focus correction on R side ( Bridge, DKTC stretch, f/b TM) Side right Reps/Minutes 8' Sitting Exercises Piriformis Sitting Exercise Name Fig 4 position bringing L knee up to R shoulder Side left Reps/Minutes 2' Comments Extra time to determine max bryan stretch Fig 4 Side left Reps/Minutes 2' Comments Extra time to determine max bryan stretch Therapeutic Activity Therapeutic Activity Sit posture trng Reps/Minutes 3' Comments Equal sit on isch tubs and upright trunk Manual Therapy Treatment Consent Patient gave verbal consent for manual Yes treatment Joint Mobilizations R SIJ Joint R SIJ Direction Correction of R inflare ( anterior rot R innominate) Body Position Supine Reps/Duration 17' Comments Correction of inflare correct long R leg. Pt educated in self correction technique. SIJ dysfunction Phase I (see ther ex) immediately after correction. Self-Care/Home Management Treatment Activities Self-Care/Home Management Activities Issued & reviewed HEP: SItting Piriformis and Fig 4 stretch, and supine Piriformis stretch (L hip). PT-OP-T Assessment and Plan Start: 08/24/24 07:22 Freq: Status: Active Protocol: Document 09/05/24 07:31 LRN (Rec: 09/05/24 08:20 LRN Laptop) Physical Therapy Assessment Goals Two Impairment Pain in L buttock with hiking, stair amb, walking ramps. Prison Goal (LTG) Improve ability to hike, climb stairs, and walk ramps with better mechanics. and without triggering onset of L buttock. 09/05/24: Pt reported able to hike w/o L LBP, but still having groin pain. LTG Duration 11/16/24 progressing 09/05/24 One Impairment Lacks appropriate self care HEP. Short Term Goal (STG) Pt will be able to demonstrated good sitting/ standing posture of equal WBing through hips or LE's. STG Duration 10/05/24 Motorcycle Riding Instructor Goal (LTG) Pt will be independent and consistent with a daily ex routine to isolate the hip muscles with stretches (inner thigh) and strengthening ( requested Gluteus Medius) to improve hip mobility and LE function per LEFS score ( current 55/80). 08/29/24: HEP: Inner core/PF /lumbar multifidus tightening for core stabilization, & Stage I of Get Your Belly Back (TA tightening). : HEP: SItting Piriformis and Fig 4 stretch, and supine Piriformis stretch (L hip). LTG Duration 11/16/24 progressed 08/29/24 (need inner thigh stretch & GM strength) Assessment Summary Assessment Pt is a 74 yo male with a L rotated sacrum, weak and tight L hip muscles, tight L lumbar /thoracic paraspinals, with L SIJ pain walking ramps, stairs & hiking. Today, pt reporting no LLBP with hiking, but lingering L anterior groin pain. Pain in groin after therapy, much training for self care SIJ dys self correction. Physical Therapy Plan Frequency and Duration Frequency of Treatment 2x/Week Duration of treatment (weeks) 12 Plan of Care Start Date 08/24/24 Plan of Care End Date 11/16/24 Next Visit Focus/Plan Next Note Type Treatment Note Next Visit Plan Next: Educate in proper sitting/standing posture (STG1 ). Assess for pain L SIJ dysfunction with gait on stairs, ramp, and walking while holding core stable. Manual therapy (Sacral balancing, R SIJ correction if needed) to correct R outflare . POC: Address: Weak and tight L hip muscles, tight L lumbar /thoracic paraspinals, with pain in L SIJ with walking ramps, stairs & hiking. Therapeutic Ex (strengthening/ ROM), Therapeutic Activity ( transfer training), manual therapy (STM/JMT), Gait & Balance training, Pt Education (HEP, Edema and pain mgmt).
--- NOTE | 2024-09-08 08:16 | PT.OTN ---
Current Diagnoses Pain in left hip (09/08/24) Low back pain, unspecified (09/08/24) Unspecified abnormalities of gait and mobility (09/08/24) Physical Therapy Treatment Note PT-OP-A Visit Information Start: 08/24/24 07:22 Freq: Status: Active Protocol: Document 09/08/24 07:32 SP (Rec: 09/08/24 09:00 SP [id number]) Out-Patient Physical Therapy Visit Information Visit Information Visit Type Treatment Note Visit Start Time 07:32 Visit Stop Time 08:16 Visit Number 4 Number of CHIEF VENDOR QUALITY Visits 1 Evaluation Information Evaluation Date 08/24/24 Precautions Precautions Yomi feet neuropathy for 7 yrs. PT-OP-B Current Condition Start: 08/24/24 07:22 Freq: Status: Active Protocol: Document 08/24/24 07:34 LRN (Rec: 08/24/24 08:22 LRN Laptop) Current Condition History of Current Condition Onset Date 2 yrs ago Current Complaints 2 months ago. History of Current Condition Insidious onset over 6 yrs of neuropathy of yomi big toes and sometimes in all toes with infrequent radiation up to legs. Two yrs ago had insidious onset of L hip pain that he associates with climbing. Hiking with son (OT) who noticed he was not hiking well up a hill, laboring on the L leg and his son recommended he seek PT evaluation. States he also has C3 R UE pain that he has had some resolution with help of java solutions architect. LBP is constant at 1-2/10, the L hip/ buttock pain is acute/ situational (pain 6-7/10), causing him to take a quick break to relieve the pain. Prior Treatments and Tests No imaging. 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 Treatment Goals Patient/Caregiver Goals Pt goals: - Daily ex routine to isolate the Gluteus Medius and strengthen and a tight inner thigh ms stretch. - Improve ability to hike with better mechanics. - Improve ability to climb stairs, ramp, and hike without triggering onset of L buttock . Personal Factors Other Personal Factors That May Effect Neuropathy of feet for 7 yrs. Therapy/Recovery PT-OP-C Subjective Start: 08/24/24 07:22 Freq: Status: Active Protocol: Document 09/08/24 07:32 SP (Rec: 09/08/24 09:00 SP [id number]) OP-PT Subjective Patient Comments Patient Comments Pt stated walked [place] yesterday and did well the whole 2.5 miles and did stop, sit down and stretch part way but didn't feel made a difference. He stated was little discomfort after got up vs before sitting down. Compliant with stretches given in PT. He reports gets up 1-3 x/night dry mouth and nose goes to bathroom, drink 16 oz water. In am does a self stretch reach overhead banister and dips leg off step and get a good low back stretch then other side, good back tightness relief clunk with more mobility after. No pain walking now anterior & posterior L hip can step up on surfaces, now just lack IR motion feeling and wants to address this today. PT-OP-F Manual Assessment Start: 08/24/24 07:22 Freq: Status: Active Protocol: Document 08/29/24 07:23 LRN (Rec: 08/29/24 09:15 LRN Laptop) Manual Assessments Joint Mobility Assessment Joint Mobility Assessment R innominate anterior rot/L posterior rot. (L leg long in sup and long sit.) Inflare on R innominate. + March on R (moves with june ). PT-OP-G Mobility & Gait Start: 08/24/24 07:22 Freq: Status: Active Protocol: Document 08/29/24 07:23 LRN (Rec: 08/29/24 09:15 LRN Laptop) Stair Climbing Evaluation Evaluation Level of Assist On Stairs Independent Devices Stair Climbing Assistive Devices None Technique/Endurance Stair Climbing Direction Ascend and Descend Number of Steps Climbed 10 Stair Climbing Set # Repetitions (reps) 2 Comments Stair Climbing Comments Pt had stable pelvis but excessive trunk rot (no pelvic SB) PT-OP-J Posture/Palpation/Skin Start: 08/24/24 07:22 Freq: Status: Active Protocol: Document 08/24/24 07:34 LRN (Rec: 08/24/24 08:22 LRN Laptop) Posture Evaluation Position Standing Head/C-Spine Posture Forward Head T-Spine Posture Flattened L-Spine Posture Shifted Left Shoulder Posture (R) Elevated Weight Distribution Weight Shifted Right Hip Posture (R) Externally Rotated Foot Arch (R) Medium Arch,(L) Low Arch Comments Posture Comments mild dowagers hump Palpation Assessment Location L LB Palpation Location superior iliac crest sup Palpation Findings Tenderness L hip Palpation Location L Buttock Lat border of sacrum (standing) Palpation Findings Tenderness PT-OP-K Range of Motion Start: 08/24/24 07:22 Freq: Status: Active Protocol: Document 08/24/24 07:34 LRN (Rec: 08/24/24 08:22 LRN Laptop) Lumbar Spine Range of Motion Lumbar Spine Active Degrees Testing Position Standing Flexion 100 Extension 10 Rotation Left 40 Rotation Right 43 Lateral Flexion Left 10 Lateral Flexion Right 10 Hip Goniometric Range of Motion Hip Right Passive Testing Position Supine Internal Rotation 15 External Rotation 65 Comments L hip IR created twinge of pain in the L Left Passive Testing Position Supine Internal Rotation 5 External Rotation 60 PT-OP-L Special Tests Start: 08/24/24 07:22 Freq: Status: Active Protocol: Document 08/24/24 07:34 LRN (Rec: 08/24/24 08:22 LRN Laptop) Special Tests Neural Special Tests- Lower Body Sciatic Nerve Tension Test Results + left Comments + Slump PT-OP-M Strength Start: 08/24/24 07:22 Freq: Status: Active Protocol: Document 08/24/24 07:34 LRN (Rec: 08/24/24 08:22 LRN Laptop) Hip Strength Hip Manual Muscle Testing Right Comments Strength is 5/5 except as indicated above. Left Flexion (L2) 3+ Fair+ Adduction 4+ Good+ Comments Strength is 5/5 except as indicated above. PT-OP-Q Treatments Start: 08/24/24 07:22 Freq: Status: Active Protocol: Document 09/08/24 07:32 SP (Rec: 09/08/24 09:00 SP [id number]) Therapeutic Exercises Supine Exercises SIJ Dys Phase I Supine Exercise Name Focus correction on R side ( Bridge, DKTC stretch, f/b TM ( ?)) Side right Reps/Minutes 30 SH x3 each Comments cues for gentle range, not excessive Fig 4 stretch Side left Reps/Minutes 60 SH x 2 Lateral Hip stretch Supine Exercise Name Reviewed Side left Equipment Used provided per pt request use of Theracane support leg Reps/Minutes 60 SH x 2 Comments Occ cue with good demo on bryan max stretch. Piriformis stretch Supine Exercise Name L Piriformis stretch Side left Equipment Used provided per pt request use of Theracane support leg Reps/Minutes 60 SH x 2 Comments Occ cue with good demo on bryan max stretch. Prone Exercises Hip IR Prone Exercise Name added to HEP with HO Side bilateral Resistance TB #1 light blue around ankles Equipment Used small orange ball between knees, flat pillow under pelvis Reps/Minutes 5 together, 10 individual Comments cued slow gentle movement into band, level pelvis on pillow/ TA not rocking Sidelying Exercises Open book Sidelying Exercise Name added to HEP with HO- (pec and QL gentle stretch) Side bilateral Equipment Used hand on bottom arm Reps/Minutes 5-8 reps, 2 breath end range- improved QL mobility Comments cues for stacked alignment, slow gentle range, head turn with trunk Other Exercises Self STMs Other Exercise Name 1. Ball wall ES & QL 2. Theracane posterior neck Equipment Used added to HEP as needed Reps/Minutes 5 min instruction Comments good relief Manual Therapy Treatment Consent Patient gave verbal consent for manual Yes treatment Soft Tissue Mobilization B hips Body Location B Piriformis, Glut Max Mobilization Type Rolling,Sustained Pressure, Other Intensity/Depth Moderate Body Position prone over flat pillow Comments STMs, MWM hip IR then contract relax 5 SH x5 reps into hip IR with gains in ROM, painfree reported Self-Care/Home Management Treatment Education Patient Education Body Mechanics,Joint Protection,Pain Management, Posture Other Education Education with HOs for proper postural alignment sit, standing- has high low desk/ good ergonomic keyboard and monitor height dialed in but does stay in 1 position for few hrs- recommended changing 30 min and even BLE WB with neutral spine. Time spent on sleeping positioning use pillows side sleeping and modified prone. Issued HOs for prone hip IR strengthening and openbook for spinal, ribcage and scapulothoracic mobility- with good feedback response addressed motion better requested at arrival. PT-OP-T Assessment and Plan Start: 08/24/24 07:22 Freq: Status: Active Protocol: Document 09/08/24 07:32 SP (Rec: 09/08/24 09:00 SP [id number]) Physical Therapy Assessment Goals Two Impairment Pain in L buttock with hiking, stair amb, walking ramps. Box Liner Goal (LTG) Improve ability to hike, climb stairs, and walk ramps with better mechanics. and without triggering onset of L buttock. 09/05/24: Pt reported able to hike w/o L LBP, but still having groin pain. LTG Duration 11/16/24 progressing 09/05/24 One Impairment Lacks appropriate self care HEP. Short Term Goal (STG) Pt will be able to demonstrated good sitting/ standing posture of equal WBing through hips or LE's. 09/08/24: Education with HO for proper postural alignment sit , standing- has high low desk/ good ergonomic keyboard and monitor height dialed in but does stay in 1 position for few hrs0 recommended changing 30 min and even BLE WB with neutral spine. STG Duration 10/05/24 GOAL MET 09/08/24 Box Liner Goal (LTG) Pt will be independent and consistent with a daily ex routine to isolate the hip muscles with stretches (inner thigh) and strengthening ( requested Gluteus Medius) to improve hip mobility and LE function per LEFS score ( current 55/80). 08/29/24: HEP: Inner core/PF /lumbar multifidus tightening for core stabilization, & Stage I of Get Your Belly Back (TA tightening). : HEP: SItting Piriformis and Fig 4 stretch, and supine Piriformis stretch (L hip). LTG Duration 11/16/24 progressed 08/29/24 (need inner thigh stretch & GM strength) Assessment Summary Assessment Pt pelvic alignment neutral and even BLE today at arrival with no pain and not pain walking anymore, just reported decreased range hip IR L>R feeling. Pt demonstrates and reports increased B hip IR AROM and decreased tightness over lateral L hip and able to rotate trunk more when came to standing end tx, provided HOs for set up and carryover home. Instructed self STMs use ball wall over posterior hip and reviewed self use theracane has home for self relief performance with good response. Time spent education with use HOs for self reminders postural alignment sitting, standing and sleeping use pillows. Good feedback response to open book end tx for spinal and ribcage mobility in am. Pt reports no pain end tx before left and pleased addressed limted hip IR range and what can do self support at home. Physical Therapy Plan Frequency and Duration Frequency of Treatment 2x/Week Duration of treatment (weeks) 12 Plan of Care Start Date 08/24/24 Plan of Care End Date 11/16/24 Therapeutic Interventions Therapeutic Interventions Gait Training,Home Exercise Program,Joint Mobilizations, Manual Therapy,Neuromuscular Re-education,Self-Care/Home Management,Soft Tissue Mobilization,Therapeutic Activities,Therapeutic Exercises Modalities Cold Pack/Ice Massage,Electric Stimulation,Hot Packs Next Visit Focus/Plan Next Note Type Treatment Note Next Visit Plan Next: Recheck for pain L SIJ dysfunction with gait on stairs, ramp, and walking while holding core stable. Review/ assess response to resisted hip IR and open book added last tx. POC: Manual therapy (Sacral balancing, R SIJ correction if needed) to correct R outflare . POC: Address: Weak and tight L hip muscles, tight L lumbar /thoracic paraspinals, with pain in L SIJ with walking ramps, stairs & hiking. Therapeutic Ex (strengthening/ ROM), Therapeutic Activity ( transfer training), manual therapy (STM/JMT), Gait & Balance training, Pt Education (HEP, Edema and pain mgmt).
--- NOTE | 2024-09-12 18:07 | PT.OTN ---
Current Diagnoses Pain in left hip (09/12/24) Low back pain, unspecified (09/12/24) Unspecified abnormalities of gait and mobility (09/12/24) Physical Therapy Treatment Note PT-OP-A Visit Information Start: 08/24/24 07:22 Freq: Status: Active Protocol: Document 09/12/24 07:31 LRN (Rec: 09/12/24 08:20 LRN Laptop) Out-Patient Physical Therapy Visit Information Visit Information Visit Type Treatment Note Visit Start Time 07:31 Visit Stop Time 08:17 Visit Number 5 Evaluation Information Evaluation Date 08/24/24 Precautions Precautions Yomi feet neuropathy for 7 yrs. PT-OP-B Current Condition Start: 08/24/24 07:22 Freq: Status: Active Protocol: Document 08/24/24 07:34 LRN (Rec: 08/24/24 08:22 LRN Laptop) Current Condition History of Current Condition Onset Date 2 yrs ago Current Complaints 2 months ago. History of Current Condition Insidious onset over 6 yrs of neuropathy of yomi big toes and sometimes in all toes with infrequent radiation up to legs. Two yrs ago had insidious onset of L hip pain that he associates with climbing. Hiking with son (OT) who noticed he was not hiking well up a hill, laboring on the L leg and his son recommended he seek PT evaluation. States he also has C3 R UE pain that he has had some resolution with help of cottage cheese maker. LBP is constant at 1-2/10, the L hip/ buttock pain is acute/ situational (pain 6-7/10), causing him to take a quick break to relieve the pain. Prior Treatments and Tests No imaging. 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 Treatment Goals Patient/Caregiver Goals Pt goals: - Daily ex routine to isolate the Gluteus Medius and strengthen and a tight inner thigh ms stretch. - Improve ability to hike with better mechanics. - Improve ability to climb stairs, ramp, and hike without triggering onset of L buttock . Personal Factors Other Personal Factors That May Effect Neuropathy of feet for 7 yrs. Therapy/Recovery PT-OP-C Subjective Start: 08/24/24 07:22 Freq: Status: Active Protocol: Document 09/12/24 07:31 LRN (Rec: 09/12/24 08:20 LRN Laptop) OP-PT Subjective Patient Comments Patient Comments States not as good, because sat in car driving over weekend and was taking apart a heavy table. L SIJ pain rated 1-2/10 and every once in awhile gets an acute (1/2 sec ) weakness in the leg due to pain, getting better since starting therapy. OP-PT Pain Assessment Pain Assessment Grid Paper Pain Assessment Grid Completed Yes Location L LB Pain Location Details Center & L Low Back Intensity 2 Scale Used Numeric (0 - 10) PT-OP-F Manual Assessment Start: 08/24/24 07:22 Freq: Status: Active Protocol: Document 08/29/24 07:23 LRN (Rec: 08/29/24 09:15 LRN Laptop) Manual Assessments Joint Mobility Assessment Joint Mobility Assessment R innominate anterior rot/L posterior rot. (L leg long in sup and long sit.) Inflare on R innominate. + March on R (moves with march ). PT-OP-G Mobility & Gait Start: 08/24/24 07:22 Freq: Status: Active Protocol: Document 08/29/24 07:23 LRN (Rec: 08/29/24 09:15 LRN Laptop) Stair Climbing Evaluation Evaluation Level of Assist On Stairs Independent Devices Stair Climbing Assistive Devices None Technique/Endurance Stair Climbing Direction Ascend and Descend Number of Steps Climbed 10 Stair Climbing Set # Repetitions (reps) 2 Comments Stair Climbing Comments Pt had stable pelvis but excessive trunk rot (no pelvic SB) PT-OP-J Posture/Palpation/Skin Start: 08/24/24 07:22 Freq: Status: Active Protocol: Document 08/24/24 07:34 LRN (Rec: 08/24/24 08:22 LRN Laptop) Posture Evaluation Position Standing Head/C-Spine Posture Forward Head T-Spine Posture Flattened L-Spine Posture Shifted Left Shoulder Posture (R) Elevated Weight Distribution Weight Shifted Right Hip Posture (R) Externally Rotated Foot Arch (R) Medium Arch,(L) Low Arch Comments Posture Comments mild dowagers hump Palpation Assessment Location L LB Palpation Location superior iliac crest sup Palpation Findings Tenderness L hip Palpation Location L Buttock Lat border of sacrum (standing) Palpation Findings Tenderness PT-OP-K Range of Motion Start: 08/24/24 07:22 Freq: Status: Active Protocol: Document 08/24/24 07:34 LRN (Rec: 08/24/24 08:22 LRN Laptop) Lumbar Spine Range of Motion Lumbar Spine Active Degrees Testing Position Standing Flexion 100 Extension 10 Rotation Left 40 Rotation Right 43 Lateral Flexion Left 10 Lateral Flexion Right 10 Hip Goniometric Range of Motion Hip Right Passive Testing Position Supine Internal Rotation 15 External Rotation 65 Comments L hip IR created twinge of pain in the L Left Passive Testing Position Supine Internal Rotation 5 External Rotation 60 PT-OP-L Special Tests Start: 08/24/24 07:22 Freq: Status: Active Protocol: Document 08/24/24 07:34 LRN (Rec: 08/24/24 08:22 LRN Laptop) Special Tests Neural Special Tests- Lower Body Sciatic Nerve Tension Test Results + left Comments + Slump PT-OP-M Strength Start: 08/24/24 07:22 Freq: Status: Active Protocol: Document 08/24/24 07:34 LRN (Rec: 08/24/24 08:22 LRN Laptop) Hip Strength Hip Manual Muscle Testing Right Comments Strength is 5/5 except as indicated above. Left Flexion (L2) 3+ Fair+ Adduction 4+ Good+ Comments Strength is 5/5 except as indicated above. PT-OP-Q Treatments Start: 08/24/24 07:22 Freq: Status: Active Protocol: Document 09/12/24 07:31 LRN (Rec: 09/12/24 08:20 LRN Laptop) Cardio Equipment Treadmill Duration (Minutes) 5 Speed 1.1 Incline 0 Other Pt wearing walking tennis shoes. Therapeutic Exercises Prone Exercises Hip IR Prone Exercise Name Hip iR - DC'd after trying to modify for comfort (remains uncomfortable) Side bilateral Resistance TB #1 light blue around ankles Equipment Used small orange ball between knees, flat pillow under pelvis Reps/Minutes 5 together Comments cued slow gentle movement into band, body on pillow/ TA not rocking Sidelying Exercises Open book Sidelying Exercise Name added to HEP with HO- (pec and QL gentle stretch) Side bilateral Equipment Used hand on bottom arm Reps/Minutes 5-8 reps, 1 breath end range- improved QL mobility Comments cues for stacked alignment, slow gentle range, head turn with trunk Sitting Exercises Hip IR strengthening Sitting Exercise Name added to HEP with HO- (pec and QL gentle stretch) Resistance TB #1 light blue around ankles Equipment Used small orange ball between knees, flat pillow under pelvis Reps/Minutes 10' (extra time due to training) Comments cues for maintaining alignment , slow gentle range Self-Care/Home Management Treatment Education Other Education Reviewed best body mechanics to not injure LB following taking apart his heavy table at home. Reviewed proper sitting and standing posture, body mechanics and lying postures. PT-OP-T Assessment and Plan Start: 08/24/24 07:22 Freq: Status: Active Protocol: Document 09/12/24 07:31 LRN (Rec: 09/12/24 08:20 LRN Laptop) Physical Therapy Assessment Goals Two Impairment Pain in L buttock with hiking, stair amb, walking ramps. Net Architect Goal (LTG) Improve ability to hike, climb stairs, and walk ramps with better mechanics. and without triggering onset of L buttock. 09/05/24: Pt reported able to hike w/o L LBP, but still having groin pain. LTG Duration 11/16/24 progressing 09/05/24 One Impairment Lacks appropriate self care HEP. Short Term Goal (STG) Pt will be able to demonstrated good sitting/ standing posture of equal WBing through hips or LE's. 09/08/24: Education with HO for proper postural alignment sit , standing- has high low desk/ good ergonomic keyboard and monitor height dialed in but does stay in 1 position for few hrs0 recommended changing 30 min and even BLE WB with neutral spine. STG Duration 10/05/24 (GOAL MET 09/08/24) Net Architect Goal (LTG) Pt will be independent and consistent with a daily ex routine to isolate the hip muscles with stretches (inner thigh) and strengthening ( requested Gluteus Medius) to improve hip mobility and LE function per LEFS score ( current 55/80). 08/29/24: HEP: Inner core/PF /lumbar multifidus tightening for core stabilization, & Stage I of Get Your Belly Back (TA tightening). : HEP: SItting Piriformis and Fig 4 stretch, and supine Piriformis stretch (L hip). LTG Duration 11/16/24 progressed 08/29/24 (need inner thigh stretch & GM strength) Assessment Summary Assessment Pt back flared after weekend of driving and taking apart table. Pain with prone active resisted hip IR strengthening ; therefore DC'd. Pt reported self adjustment of spine with open book lying R side. Walking around [place] and can walk it almost close to full speed, ~70% better. No dysfunction on gait on TM noted. Physical Therapy Plan Frequency and Duration Frequency of Treatment 2x/Week Duration of treatment (weeks) 12 Plan of Care Start Date 08/24/24 Plan of Care End Date 11/16/24 Next Visit Focus/Plan Next Note Type Treatment Note Next Visit Plan Next: Assess pain L SIJ dysfunction & gait on stairs, ramp, and walking while holding core stable. Sacral Balance & SIJ correction if needed to correct R outflare. POC: Address: Weak and tight L hip muscles, tight L lumbar /thoracic paraspinals, with pain in L SIJ with walking ramps, stairs & hiking. Therapeutic Ex (strengthening/ ROM), Therapeutic Activity ( transfer training), manual therapy (STM/JMT), Gait & Balance training, Pt Education (HEP, Edema and pain mgmt).
--- NOTE | 2024-09-15 14:39 | PT-OP ANOTE ---
Spoke with pt about last min cancellation. He stated he had to be childcare last minute and didn't find out until late the night before his appointment.
--- NOTE | 2024-09-21 09:45 | PT.OTN ---
Current Diagnoses Pain in left hip (09/21/24) Low back pain, unspecified (09/21/24) Unspecified abnormalities of gait and mobility (09/21/24) Physical Therapy Treatment Note PT-OP-A Visit Information Start: 08/24/24 07:22 Freq: Status: Active Protocol: Document 09/21/24 09:03 PG (Rec: 09/21/24 10:15 PG Laptop) Out-Patient Physical Therapy Visit Information Visit Information Visit Type Treatment Note Visit Note Peggy CHAVARRIA led tx w permission of pt and direct supervision from Mary MUÑOZ. Visit Start Time 09:03 Visit Stop Time 09:45 Visit Number 6 Number of MEDICAL COLLECTIONS SPECIALIST Visits 1 Evaluation Information Evaluation Date 08/24/24 Precautions Precautions Kane feet neuropathy for 7 yrs. PT-OP-B Current Condition Start: 08/24/24 07:22 Freq: Status: Active Protocol: Document 08/24/24 07:34 LRN (Rec: 08/24/24 08:22 LRN Laptop) Current Condition History of Current Condition Onset Date 2 yrs ago Current Complaints 2 months ago. 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 Two yrs ago had insidious onset of L hip pain that he associates with climbing. Hiking with son (OT) who noticed he was not hiking well up a hill, laboring on the L leg and his son recommended he seek PT evaluation. States he also has C3 R UE pain that he has had some resolution with help of jewelsmith. LBP is constant at 1-2/10, the L hip/ buttock pain is acute/ situational (pain 6-7/10), causing him to take a quick break to relieve the pain. Prior Treatments and Tests No imaging. 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 Treatment Goals Patient/Caregiver Goals Pt goals: - Daily ex routine to isolate the Gluteus Medius and strengthen and a tight inner thigh ms stretch. - Improve ability to hike with better mechanics. - Improve ability to climb stairs, ramp, and hike without triggering onset of L buttock . Personal Factors Other Personal Factors That May Effect Neuropathy of feet for 7 yrs. Therapy/Recovery PT-OP-C Subjective Start: 08/24/24 07:22 Freq: Status: Active Protocol: Document 09/21/24 09:03 PG (Rec: 09/21/24 10:15 PG Laptop) OP-PT Subjective Patient Comments Patient Comments Pt drove over 5hrs last night and felt some pn getting out of the car. Did some exercises to help relieve the pn: kitchen sink stretch, and modified incline pushups. Using resource: Pain Free A Revolutionary Method for Stopping Chronic Pn by Pollo Pitts & Singh Marcano to incorporate more challenging exercises. One exercise does give him some discomfort and is high stress on his UE's; quadruped with knees elevated on a higher level then UE's. PT-OP-F Manual Assessment Start: 08/24/24 07:22 Freq: Status: Active Protocol: Document 08/29/24 07:23 LRN (Rec: 08/29/24 09:15 LRN Laptop) Manual Assessments Joint Mobility Assessment Joint Mobility Assessment R innominate anterior rot/L posterior rot. (L leg long in sup and long sit.) Inflare on R innominate. + March on R (moves with june ). PT-OP-G Mobility & Gait Start: 08/24/24 07:22 Freq: Status: Active Protocol: Document 08/29/24 07:23 LRN (Rec: 08/29/24 09:15 LRN Laptop) Stair Climbing Evaluation Evaluation Level of Assist On Stairs Independent Devices Stair Climbing Assistive Devices None Technique/Endurance Stair Climbing Direction Ascend and Descend Number of Steps Climbed 10 Stair Climbing Set # Repetitions (reps) 2 Comments Stair Climbing Comments Pt had stable pelvis but excessive trunk rot (no pelvic SB) PT-OP-J Posture/Palpation/Skin Start: 08/24/24 07:22 Freq: Status: Active Protocol: Document 08/24/24 07:34 LRN (Rec: 08/24/24 08:22 LRN Laptop) Posture Evaluation Position Standing Head/C-Spine Posture Forward Head T-Spine Posture Flattened L-Spine Posture Shifted Left Shoulder Posture (R) Elevated Weight Distribution Weight Shifted Right Hip Posture (R) Externally Rotated Foot Arch (R) Medium Arch,(L) Low Arch Comments Posture Comments mild dowagers hump Palpation Assessment Location L LB Palpation Location superior iliac crest sup Palpation Findings Tenderness L hip Palpation Location L Buttock Lat border of sacrum (standing) Palpation Findings Tenderness PT-OP-K Range of Motion Start: 08/24/24 07:22 Freq: Status: Active Protocol: Document 08/24/24 07:34 LRN (Rec: 08/24/24 08:22 LRN Laptop) Lumbar Spine Range of Motion Lumbar Spine Active Degrees Testing Position Standing Flexion 100 Extension 10 Rotation Left 40 Rotation Right 43 Lateral Flexion Left 10 Lateral Flexion Right 10 Hip Goniometric Range of Motion Hip Right Passive Testing Position Supine Internal Rotation 15 External Rotation 65 Comments L hip IR created twinge of pain in the L Left Passive Testing Position Supine Internal Rotation 5 External Rotation 60 PT-OP-L Special Tests Start: 08/24/24 07:22 Freq: Status: Active Protocol: Document 08/24/24 07:34 LRN (Rec: 08/24/24 08:22 LRN Laptop) Special Tests Neural Special Tests- Lower Body Sciatic Nerve Tension Test Results + left Comments + Slump PT-OP-M Strength Start: 08/24/24 07:22 Freq: Status: Active Protocol: Document 08/24/24 07:34 LRN (Rec: 08/24/24 08:22 LRN Laptop) Hip Strength Hip Manual Muscle Testing Right Comments Strength is 5/5 except as indicated above. Left Flexion (L2) 3+ Fair+ Adduction 4+ Good+ Comments Strength is 5/5 except as indicated above. PT-OP-Q Treatments Start: 08/24/24 07:22 Freq: Status: Active Protocol: Document 09/21/24 09:03 PG (Rec: 09/21/24 10:15 PG Laptop) Therapeutic Exercises Sitting Exercises Hip IR strengthening Sitting Exercise Name Reviewed Resistance TB #1 light blue around ankles Equipment Used small yellow ball between knees Reps/Minutes several reps Comments cues for maintaining alignment , slow gentle range Standing Exercises Hip flexor stretch Standing Exercise Name Reviewed pt self exercise: Foot on chair to target iliopsoas Side bilateral Reps/Minutes demonstrated in PT, pt states he holds for 40-60 sec Kitchen Sink stretch Standing Exercise Name Reviewed pt self exercise Reps/Minutes 30 sec Other Exercises Quadruped Other Exercise Name 1. cat/cow 2. pointer dog 3. Thread the needle 4. Nilda pose Side bilateral Equipment Used dowel for spine alignment tactile feedback Reps/Minutes 1-3. x10 each 4. 30 sec hold Comments (declined HO) cued core engage , neutral c/s, slow pace, level pelvis PT-OP-T Assessment and Plan Start: 08/24/24 07:22 Freq: Status: Active Protocol: Document 09/21/24 09:03 PG (Rec: 09/21/24 10:15 PG Laptop) Physical Therapy Assessment Goals Two Impairment Pain in L buttock with hiking, stair amb, walking ramps. Assisted Goal (LTG) Improve ability to hike, climb stairs, and walk ramps with better mechanics. and without triggering onset of L buttock. 09/05/24: Pt reported able to hike w/o L LBP, but still having groin pain. LTG Duration 11/16/24 progressing 09/05/24 One Impairment Lacks appropriate self care HEP. Short Term Goal (STG) Pt will be able to demonstrated good sitting/ standing posture of equal WBing through hips or LE's. 09/08/24: Education with HO for proper postural alignment sit , standing- has high low desk/ good ergonomic keyboard and monitor height dialed in but does stay in 1 position for few hrs0 recommended changing 30 min and even BLE WB with neutral spine. STG Duration 10/05/24 (GOAL MET 09/08/24) Flag Signaler Goal (LTG) Pt will be independent and consistent with a daily ex routine to isolate the hip muscles with stretches (inner thigh) and strengthening ( requested Gluteus Medius) to improve hip mobility and LE function per LEFS score ( current 55/80). 08/29/24: HEP: Inner core/PF /lumbar multifidus tightening for core stabilization, & Stage I of Get Your Belly Back (TA tightening). : HEP: SItting Piriformis and Fig 4 stretch, and supine Piriformis stretch (L hip). 09/21/24: HEP: hip flexor, kitchen sink stretches. Quadruped: cat/cow, pointer dog, thread the needle, child' s pose (declined HO) LTG Duration 11/16/24 progressed 08/29/24 (need inner thigh stretch & GM strength) Assessment Summary Assessment Reviewed seated IR hip strengthening for HEP, pt demonstrated good form and tolerance. Pt has been performing some exercises from resource on chronic pain. Reviewed a couple self initiated exercises and modified a quadruped with elevated LE's to a quadruped position with knees/hands level to ease discomfort or reduce stress on UE's. Instructed pt in cat/cow, pointer dog, thread the needle , and ended with a nilda pose stretch to work on core strengthening while maintaining a level pelvis and initiating thoracic and lumbar mobility. Pt tolerated well and demonstrated good form with verbal and tactile cues, especially for slow pacing and did require some redirection to task. Physical Therapy Plan Frequency and Duration Frequency of Treatment 2x/Week Duration of treatment (weeks) 12 Plan of Care Start Date 08/24/24 Plan of Care End Date 11/16/24 Therapeutic Interventions Therapeutic Interventions Gait Training,Home Exercise Program,Joint Mobilizations, Manual Therapy,Neuromuscular Re-education,Self-Care/Home Management,Soft Tissue Mobilization,Therapeutic Activities,Therapeutic Exercises Modalities Cold Pack/Ice Massage,Electric Stimulation,Hot Packs Next Visit Focus/Plan Next Note Type Treatment Note Next Visit Plan Next: Review Quadruped ex's, add standing hip abduction? Assess pain L SIJ dysfunction & gait on stairs, ramp, and walking while holding core stable. Sacral Balance & SIJ correction if needed to correct R outflare. POC: Address: Weak and tight L hip muscles, tight L lumbar /thoracic paraspinals, with pain in L SIJ with walking ramps, stairs & hiking. Therapeutic Ex (strengthening/ ROM), Therapeutic Activity ( transfer training), manual therapy (STM/JMT), Gait & Balance training, Pt Education (HEP, Edema and pain mgmt).
--- NOTE | 2024-09-25 16:39 | PT.OTN ---
Current Diagnoses Pain in left hip (09/25/24) Low back pain, unspecified (09/25/24) Unspecified abnormalities of gait and mobility (09/25/24) Physical Therapy Treatment Note PT-OP-A Visit Information Start: 08/24/24 07:22 Freq: Status: Active Protocol: Document 09/25/24 07:34 LRN (Rec: 09/25/24 08:21 LRN Laptop) Out-Patient Physical Therapy Visit Information Visit Information Visit Type Treatment Note Visit Start Time 07:34 Visit Stop Time 08:20 Visit Number 7 Evaluation Information Evaluation Date 08/24/24 Precautions Precautions [place] feet neuropathy for 7 yrs. PT-OP-B Current Condition Start: 08/24/24 07:22 Freq: Status: Active Protocol: Document 08/24/24 07:34 LRN (Rec: 08/24/24 08:22 LRN Laptop) Current Condition History of Current Condition Onset Date 2 yrs ago Current Complaints 2 months ago. History of Current Condition Insidious onset over 6 yrs of neuropathy of [place] big toes and sometimes in all toes with infrequent radiation up to legs. Two yrs ago had insidious onset of L hip pain that he associates with climbing. Hiking with son (OT) who noticed he was not hiking well up a hill, laboring on the L leg and his son recommended he seek PT evaluation. States he also has C3 R UE pain that he has had some resolution with help of civil draftsman. LBP is constant at 1-2/10, the L hip/ buttock pain is acute/ situational (pain 6-7/10), causing him to take a quick break to relieve the pain. Prior Treatments and Tests No imaging. 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 Treatment Goals Patient/Caregiver Goals Pt goals: - Daily ex routine to isolate the Gluteus Medius and strengthen and a tight inner thigh ms stretch. - Improve ability to hike with better mechanics. - Improve ability to climb stairs, ramp, and hike without triggering onset of L buttock . Personal Factors Other Personal Factors That May Effect Neuropathy of feet for 7 yrs. Therapy/Recovery PT-OP-C Subjective Start: 08/24/24 07:22 Freq: Status: Active Protocol: Document 09/25/24 07:34 LRN (Rec: 09/25/24 08:21 LRN Laptop) OP-PT Subjective Patient Comments Patient Comments Not having L buttock pain with stairs. Doing stretches and able to control the symptoms. States he did a hike yesterday, 5 miles roundtrip of 1500 elevation, had a couple onset of L across low back tightness in Piriformis and Psoas so changed gait and was able to control. Patient Questionnaires Lower Extremity Functional Scale LEFS Score 66 LEFS Impairment 1 to 19% Impaired (Score 63-79 ) PT-OP-F Manual Assessment Start: 08/24/24 07:22 Freq: Status: Active Protocol: Document 09/25/24 07:34 LRN (Rec: 09/25/24 08:21 LRN Laptop) Manual Assessments Joint Mobility Assessment Joint Mobility Assessment L innominate slightly inflared . ASIS level Medial malleolus symmetry in length. PT-OP-G Mobility & Gait Start: 08/24/24 07:22 Freq: Status: Active Protocol: Document 08/29/24 07:23 LRN (Rec: 08/29/24 09:15 LRN Laptop) Stair Climbing Evaluation Evaluation Level of Assist On Stairs Independent Devices Stair Climbing Assistive Devices None Technique/Endurance Stair Climbing Direction Ascend and Descend Number of Steps Climbed 10 Stair Climbing Set # Repetitions (reps) 2 Comments Stair Climbing Comments Pt had stable pelvis but excessive trunk rot (no pelvic SB) PT-OP-J Posture/Palpation/Skin Start: 08/24/24 07:22 Freq: Status: Active Protocol: Document 08/24/24 07:34 LRN (Rec: 08/24/24 08:22 LRN Laptop) Posture Evaluation Position Standing Head/C-Spine Posture Forward Head T-Spine Posture Flattened L-Spine Posture Shifted Left Shoulder Posture (R) Elevated Weight Distribution Weight Shifted Right Hip Posture (R) Externally Rotated Foot Arch (R) Medium Arch,(L) Low Arch Comments Posture Comments mild dowagers hump Palpation Assessment Location L LB Palpation Location superior iliac crest sup Palpation Findings Tenderness L hip Palpation Location L Buttock Lat border of sacrum (standing) Palpation Findings Tenderness PT-OP-K Range of Motion Start: 08/24/24 07:22 Freq: Status: Active Protocol: Document 08/24/24 07:34 LRN (Rec: 08/24/24 08:22 LRN Laptop) Lumbar Spine Range of Motion Lumbar Spine Active Degrees Testing Position Standing Flexion 100 Extension 10 Rotation Left 40 Rotation Right 43 Lateral Flexion Left 10 Lateral Flexion Right 10 Hip Goniometric Range of Motion Hip Right Passive Testing Position Supine Internal Rotation 15 External Rotation 65 Comments L hip IR created twinge of pain in the L Left Passive Testing Position Supine Internal Rotation 5 External Rotation 60 PT-OP-L Special Tests Start: 08/24/24 07:22 Freq: Status: Active Protocol: Document 08/24/24 07:34 LRN (Rec: 08/24/24 08:22 LRN Laptop) Special Tests Neural Special Tests- Lower Body Sciatic Nerve Tension Test Results + left Comments + Slump PT-OP-M Strength Start: 08/24/24 07:22 Freq: Status: Active Protocol: Document 08/24/24 07:34 LRN (Rec: 08/24/24 08:22 LRN Laptop) Hip Strength Hip Manual Muscle Testing Right Comments Strength is 5/5 except as indicated above. Left Flexion (L2) 3+ Fair+ Adduction 4+ Good+ Comments Strength is 5/5 except as indicated above. PT-OP-Q Treatments Start: 08/24/24 07:22 Freq: Status: Active Protocol: Document 09/25/24 07:34 LRN (Rec: 09/25/24 08:21 LRN Laptop) Therapeutic Exercises Sidelying Exercises Open book Sidelying Exercise Name Reviewed HEP Side bilateral Equipment Used hand on bottom arm Reps/Minutes 5-8 reps, 1 breath end range- improved QL mobility Comments cues for stacked alignment, slow gentle range, head turn with trunk Standing Exercises Kitchen Sink stretch Standing Exercise Name Pt self exercise: Counter stretch Reps/Minutes 30 sec x 2 Comments Extra time taken for pt to demonstrate position & explain ex Other Exercises Quadruped Other Exercise Name Reviewed: 1. cat/cow 2. pointer dog 3. Thread the needle 4. Hipolito pose Side bilateral Equipment Used dowel for spine alignment tactile feedback Reps/Minutes 1-3. x10 each 4. 30 sec hold Comments (declined HO) cued core engage , neutral c/s, slow pace, level pelvis Self-Care/Home Management Treatment Activities Self-Care/Home Management Activities Reviewed, discussed, and issued HEP: Open book, Thread the Needle, Child's Pose ( Rock Back), Cat/Cow. PT-OP-T Assessment and Plan Start: 08/24/24 07:22 Freq: Status: Active Protocol: Document 09/25/24 07:34 LRN (Rec: 09/25/24 08:21 LRN Laptop) Physical Therapy Assessment Goals Two Impairment Pain in L buttock with hiking, stair amb, walking ramps. Landscape Engineer Goal (LTG) Improve ability to hike, climb stairs, and walk ramps with better mechanics. and without triggering onset of L buttock. 09/05/24: Pt reported able to hike w/o L LBP, but still having groin pain. 08/25/24: Able to go hiking w /o L buttock pain, having tightness that was able to control w/change of gait. LTG Duration 11/16/24 (09/25/24: MET GOAL ) One Impairment Lacks appropriate self care HEP. Short Term Goal (STG) Pt will be able to demonstrated good sitting/ standing posture of equal WBing through hips or LE's. 09/08/24: Education with HO for proper postural alignment sit , standing- has high low desk/ good ergonomic keyboard and monitor height dialed in but does stay in 1 position for few hrs0 recommended changing 30 min and even BLE WB with neutral spine. STG Duration 10/05/24 (GOAL MET 09/08/24) Landscape Engineer Goal (LTG) Pt will be independent and consistent with a daily ex routine to isolate the hip muscles with stretches (inner thigh) and strengthening ( requested Gluteus Medius) to improve hip mobility and LE function per LEFS score ( current 55/80). 08/29/24: HEP: Inner core/PF /lumbar multifidus tightening for core stabilization, & Stage I of Get Your Belly Back (TA tightening). : HEP: SItting Piriformis and Fig 4 stretch, and supine Piriformis stretch (L hip). 09/21/24: HEP: hip flexor, kitchen sink stretches. Quadruped: cat/cow, pointer dog, thread the needle, child' s pose (declined HO) LTG Duration 11/16/24 (09/25/24: MET GOAL ) Assessment Summary Assessment Pt has returned to his active lifestyle and is able to manage onset of discomfort in his LB. He is familiar with his HEP except for those issued today. Handouts issued for Child's pose and cat/cow stretching. Goals were met. Pt is ready for DC to independent HEP. Physical Therapy Plan Frequency and Duration Frequency of Treatment 2x/Week Duration of treatment (weeks) 12 Plan of Care Start Date 08/24/24 Plan of Care End Date 11/16/24 Discharge Physical Therapy Discharge Reasons Goals Met Discharge Comments Thank you for your referral.
== END 2024-09-26 10:10 | disposition home or self-care (01) ==
LOC: PHYS 07:30
PROVIDERS: Family Provider Family Medicine; PCP Family Medicine; Referring Provider Family Medicine; Visit Provider Family Medicine
DX: M25.552 Pain in left hip (principal); R26.9 Unspecified abnormalities of gait and mobility; M54.50 Low back pain, unspecified
CPT/HCPCS: 97110; 97140; 97162; 97530; 97535